=== PATIENT | male | born 1990 | race African-American/Black ===

== ENCOUNTER 2020-04-02 09:13 | Emergency (ER) | payer SELFPAY ==
--- NOTE | 2020-04-02 10:33 | RAD REPORT ---
EXAM DESCRIPTION: RAD - Chest Single View - 04/02/2020 10:16 am CLINICAL HISTORY: COUGH Chest pain. COMPARISON: No comparisons FINDINGS: Portable technique limits examination quality. The lungs are grossly clear. The heart is normal in size. No displaced fractures. IMPRESSION: No acute intrathoracic process suspected.
--- NOTE | 2020-04-02 12:07 | EDPHYS ---
Physician Documentation [facility] Name: Johnnie Richardson III Age: 29 yrs Sex: Male : 1990 Arrival Date: 04/02/2020 Time: 09:16 Bed 16 Private MD: ED Physician Jin Vizcaino HPI: 04/02 09:53 This 29 yrs old Black Male presents to ER via Ambulatory with complaints of R/O COVID. pm1 09:53 The patient or guardian reports cough, with no sputum, Runny nose. Vomit x 2, 2 days pm1 ago. Sore throat. Onset: The symptoms/episode began/occurred 1 week(s) ago. Severity of symptoms: in the emergency department the symptoms have improved. Modifying factors: The symptoms are alleviated by nothing, the symptoms are aggravated by nothing. Associated signs and symptoms: Pertinent negatives: chest pain, diarrhea, fever, Shortness of breath. The patient has not recently seen a physician. No sick contacts. Historical: - Allergies: 09:40 No Known Allergies; aa5 - Home Meds: 09:40 lisinopril 20 mg Oral tab 1 tab once daily [Active]; aa5 - PMHx: 09:40 Hypertension; aa5 - PSHx: 09:40 None; aa5 - Immunization history:: Flu vaccine is not up to date. - Social history:: Smoking status: Patient reports the use of cigarette tobacco products, smokes one-half pack cigarettes per day. ROS: 09:53 Constitutional: Negative for fever, chills, and weight loss, Eyes: Negative for injury, pm1 pain, redness, and discharge. 09:53 Cardiovascular: Negative for chest pain, palpitations, and edema. 09:53 Back: Negative for injury and pain, MS/Extremity: Negative for injury and deformity, Skin: Negative for injury, rash, and discoloration, Neuro: Negative for headache, weakness, numbness, tingling, and seizure. 09:53 ENT: Positive for rhinorrhea, sore throat, Negative for ear pain. 09:53 Respiratory: Positive for cough, with no reported sputum, Negative for shortness of breath, sputum production, wheezing. 09:53 Abdomen/GI: Positive for vomiting, resolved 2 days ago, Negative for abdominal pain, diarrhea, constipation. Exam: 09:53 Constitutional: This is a well developed, well nourished patient who is awake, alert, pm1 and in no acute distress. Head/Face: Normocephalic, atraumatic. Chest/axilla: Normal chest wall appearance and motion. Nontender with no deformity. No lesions are appreciated. 09:53 Abdomen/GI: Soft, non-tender, with normal bowel sounds. No distension or tympany. No guarding or rebound. No evidence of tenderness throughout. Back: No spinal tenderness. No costovertebral tenderness. Full range of motion. Skin: Warm, dry with normal turgor. Normal color with no rashes, no lesions, and no evidence of cellulitis. MS/ Extremity: Pulses equal, no cyanosis. Neurovascular intact. Full, normal range of motion. 09:53 Cardiovascular: Exam negative for acute changes, Rate: normal, Rhythm: regular, Pulses: no pulse deficits are appreciated. 09:53 Respiratory: Exam negative for acute changes, respiratory distress, shortness of breath. 09:53 Neuro: Exam negative for acute changes, Orientation: is normal, Mentation: is normal, Motor: is normal, moves all fours, Gait: is steady, at a normal pace, without difficulty. Vital Signs: 09:32 BP 153 / 94; Pulse 57; Resp 18 S; Temp 98.7(O); Pulse Ox 99% on R/A; Weight 90.72 kg aa5 (R); Height 5 ft. 9 in. (175.26 cm) (R); Pain 0/10; 11:20 BP 173 / 104; Pulse 72; Resp 17; Pulse Ox 100% on R/A; tw2 12:22 BP 165 / 99; Pulse 55; Resp 17; Pulse Ox 100% on R/A; tw2 09:32 Body Mass Index 29.53 (90.72 kg, 175.26 cm) aa5 MDM: 09:32 Patient medically screened. pm1 12:05 Data reviewed: vital signs. Data interpreted: Pulse oximetry: on room air is 100 %. pm1 Interpretation: normal. Counseling: I had a detailed discussion with the patient and/or guardian regarding: the historical points, exam findings, and any diagnostic results supporting the discharge/admit diagnosis, lab results, radiology results, the need for outpatient follow up, to return to the emergency department if symptoms worsen or persist or if there are any questions or concerns that arise at home. 04/02 09:53 Order name: Flu; Complete Time: 12:05 pm1 04/02 09:53 Order name: Strep; Complete Time: 12:05 pm1 04/02 09:53 Order name: CXR XRAY; Complete Time: 10:47 pm1 04/02 09:53 Order name: Labs collected and sent; Complete Time: 10:46 pm1 04/02 12:04 Order name: Throat Culture EDAK Administered Medications: No medications were administered Disposition: 20:23 Co-signature as Attending Physician, Jin Vizcaino MD I agree with the assessment and [facility] plan of care. Disposition: 04/02/20 12:06 Discharged to Home. Impression: Acute upper respiratory infection, unspecified. - Condition is Stable. - Discharge Instructions: Upper Respiratory Infection, Adult. - Prescriptions for Tessalon Perles 100 mg Oral Capsule - take 1 capsule by ORAL route every 8 hours As needed; 15 capsule. - Medication Reconciliation Form, Thank You Letter, Antibiotic Education, Prescription Opioid Use form. - Follow up: Emergency Department; When: As needed; Reason: Worsening of condition. Follow up: Private Physician; When: 2 - 3 days; Reason: Recheck today's complaints, Continuance of care, Re-evaluation by your physician. - Problem is new. - Symptoms have improved. Signatures: Dispatcher [employer] EDAK Jin Vizcaino MD MD cha Calderon, Audri, RN RN aa5 Drew Babcock, GREEN INSPECTOR GREEN INSPECTOR pm1 Zaria Hopson RN RN tw2 Corrections: (The following items were deleted from the chart) 12:23 12:06 04/02/2020 12:06 Discharged to Home. Impression: Acute upper respiratory tw2 infection, unspecified. Condition is Stable. Forms are Medication Reconciliation Form, Thank You Letter, Antibiotic Education, Prescription Opioid Use. Follow up: Emergency Department; When: As needed; Reason: Worsening of condition. Follow up: Private Physician; When: 2 - 3 days; Reason: Recheck today's complaints, Continuance of care, Re-evaluation by your physician. Problem is new. Symptoms have improved. pm1
--- NOTE | 2020-04-02 12:07 | ER ---
Nurse's Notes [facility] Name: Johnnie Richardson III Age: 29 yrs Sex: Male : 1990 Arrival Date: 04/02/2020 Time: 09:16 Bed 16 Private MD: Diagnosis: Acute upper respiratory infection, unspecified Presentation: 04/02 09:32 Chief complaint: Patient states: cough, runny nose x 1 week ago. Pt reports vomiting x aa5 2 days ago, also reports sore throat. Denies diarrhea, denies fever, denies SOB. 09:32 Coronavirus screen: Patient reports a cough. Patient denies shortness of breath or aa5 difficulty breathing. Patient denies measured and/or subjective temperature greater than 100.4F prior to today's visit. Patient denies travel on a cruise ship or to a country the [facility] currently lists as an affected area. Patient denies contact with known and/or suspected case of COVID-19. Ebola Screen: Patient negative for fever greater than or equal to 101.5 degrees Fahrenheit, and additional compatible Ebola Virus Disease symptoms. Initial Sepsis Screen: Does the patient meet any 2 criteria? No. Patient's initial sepsis screen is negative. Does the patient have a suspected source of infection? No. Patient's initial sepsis screen is negative. Risk Assessment: Do you want to hurt yourself or someone else? Patient reports no desire to harm self or others. Onset of symptoms was March 2020. 09:32 Acuity: SHILO 4 aa5 09:32 Method Of Arrival: Ambulatory aa5 Historical: - Allergies: 09:40 No Known Allergies; aa5 - Home Meds: 09:40 lisinopril 20 mg Oral tab 1 tab once daily [Active]; aa5 - PMHx: 09:40 Hypertension; aa5 - PSHx: 09:40 None; aa5 - Immunization history:: Flu vaccine is not up to date. - Social history:: Smoking status: Patient reports the use of cigarette tobacco products, smokes one-half pack cigarettes per day. Screenin:21 Abuse screen: Denies threats or abuse. Nutritional screening: No deficits noted. tw2 Tuberculosis screening: No symptoms or risk factors identified. Fall Risk None identified. Assessment: 09:35 General: Appears in no apparent distress. well groomed, Behavior is calm, cooperative, tw2 appropriate for age. Pain: Complains of pain in uvula, left aspect of posterior pharynx and right aspect of posterior pharynx. Neuro: Level of Consciousness is awake, alert, obeys commands, Oriented to person, place, time, situation. Cardiovascular: Heart tones S1 S2 Patient's skin is warm and dry. Respiratory: Airway is patent Respiratory effort is even, unlabored, Respiratory pattern is regular, symmetrical, Breath sounds are clear bilaterally. GI: No signs and/or symptoms were reported involving the gastrointestinal system. : No signs and/or symptoms were reported regarding the genitourinary system. EENT: Reports nasal congestion nasal discharge. EENT: Reports "i just been using some cough drops that's it", provider notified . Denies fever. Derm: No signs and/or symptoms reported regarding the dermatologic system. Musculoskeletal: Range of motion: intact in all extremities. 11:20 Reassessment: Patient appears in no apparent distress at this time. No changes from tw2 previously documented assessment. Patient and/or family updated on plan of care and expected duration. Pain level reassessed. Patient is alert, oriented x 3, equal unlabored respirations, skin warm/dry/pink. 12:22 Reassessment: Patient appears in no apparent distress at this time. No changes from tw2 previously documented assessment. Patient and/or family updated on plan of care and expected duration. Pain level reassessed. Patient is alert, oriented x 3, equal unlabored respirations, skin warm/dry/pink. Vital Signs: 09:32 BP 153 / 94; Pulse 57; Resp 18 S; Temp 98.7(O); Pulse Ox 99% on R/A; Weight 90.72 kg aa5 (R); Height 5 ft. 9 in. (175.26 cm) (R); Pain 0/10; 11:20 BP 173 / 104; Pulse 72; Resp 17; Pulse Ox 100% on R/A; tw2 12:22 BP 165 / 99; Pulse 55; Resp 17; Pulse Ox 100% on R/A; tw2 09:32 Body Mass Index 29.53 (90.72 kg, 175.26 cm) aa5 ED Course: 09:16 Patient arrived in ED. ag5 09:32 Drew Babcock NP is PHCP. pm1 09:32 Jin Vizcaino MD is Attending Physician. pm1 09:32 Arm band placed on. aa5 09:35 Bed in low position. Call light in reach. quality assurance monitor body on. Pulse ox on. NIBP on. tw2 Verbal reassurance given. 09:40 Triage completed. aa5 09:58 Zaria Hopson, RN is Primary Nurse. tw2 10:14 CXR XRAY In Process Unspecified. EDMS 11:35 Flu Sent. tw2 11:36 Strep Sent. tw2 11:42 No provider procedures requiring assistance completed. tw2 12:22 Patient did not have IV access during this emergency room visit. tw2 Administered Medications: No medications were administered Outcome: 12:06 Discharge ordered by MD. pm1 12:22 Discharged to home ambulatory. tw2 12:22 Condition: stable 12:22 Discharge instructions given to patient, Instructed on discharge instructions, follow up and referral plans. medication usage, Demonstrated understanding of instructions, follow-up care, medications, Prescriptions given X 1. 12:23 Patient left the ED. tw2 Signatures: Dispatcher [employer] EDME Yessi Whipple, RN RN aa5 Drew Babcock, ANIMAL RIDES MANAGER ANIMAL RIDES MANAGER pm1 Zaria Hopson, RN RN tw2 Adriana Balderas 5
[2020-04-02 12:29] VITALS: TEMP 98.7
[2020-04-02 12:30] VITALS: O2SAT 100
[2020-04-02 12:31] VITALS: BP 165/99
== END 2020-04-02 12:23 | disposition home or self-care (01) ==
LOC: ER 09:13
DX: J06.9 Acute upper respiratory infection, unspecified (principal); I10 Essential (primary) hypertension; F17.210 Nicotine dependence, cigarettes, uncomplicated
CPT/HCPCS: 71045; 87070; 87081; 87804; 99284

== ENCOUNTER 2021-01-30 10:13 | Emergency (ER) | payer SELFPAY ==
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
--- NOTE | 2021-01-30 14:09 | EDPHYS ---
Physician Documentation [facility] Name: Johnnie Richardson III Age: 30 yrs Sex: Male : 1990 Arrival Date: 01/30/2021 Time: 10:16 Bed 5 Private MD: ED Physician Historical: - Allergies: 01/30 10:20 No Known Allergies; iw - Home Meds: 10:20 None [Active]; iw - PMHx: 10:20 Hypertension; iw - PSHx: 10:20 None; iw - Immunization history:: Flu vaccine is not up to date. - Social history:: Smoking status: Patient reports the use of cigarette tobacco products, smokes one pack cigarettes per day. Vital Signs: 10:19 BP 153 / 84; Pulse 63; Resp 16; Temp 97.8; Pulse Ox 99% on R/A; Weight 92.99 kg; Height iw 5 ft. 10 in. (177.80 cm); 10:19 Body Mass Index 29.42 (92.99 kg, 177.80 cm) iw MDM: 14:09 Medical screening is not applicable. kb Administered Medications: No medications were administered Disposition: 01/30/21 14:04 Patient left the facility post triage evaluation and consult. - Patient left due to wait time. Signatures: Madelyn Bocanegra, REILLY-C NEW ACCOUNTS BANKING REPRESENTATIVE-Ct Slater, RN RN iw Yessi Whipple RN RN aa5 Corrections: (The following items were deleted from the chart) 14:09 14:04 01/30/2021 14:04 Patient left the facility post triage evaluation and consult. kb Reason stated they are leaving due to wait time. aa5
[2021-01-30 22:17] VITALS: BP 153/84; TEMP 97.8; O2SAT 99
== END 2021-01-30 14:09 | disposition left against medical advice (07) ==
LOC: ER 10:13
DX: R69 Illness, unspecified (principal); F17.210 Nicotine dependence, cigarettes, uncomplicated; I10 Essential (primary) hypertension; Z53.21 Procedure and treatment not carried out due to patient leaving prior to being seen by health care provider
CPT/HCPCS: 99281

== ENCOUNTER 2022-07-21 14:51 | Emergency (ER) | payer SELFPAY ==
--- NOTE | 2022-07-21 15:35 | EDPHYS ---
Physician Documentation [facility] Name: Johnnie Richardson III Age: 32 yrs Sex: Male : 1990 Arrival Date: 07/21/2022 Time: 14:52 Bed Treatment Private MD: ED Physician Misael Sood HPI: 07/21 15:05 This 32 yrs old Black Male presents to ER via Ambulatory with complaints of Wound Check cp - packing. 15:05 Patient presents to ED for recheck of: laceration. The affected area is on the left cp upper chest. Previous treatment: the care was rendered at [facility] in [place], [place], Treatment type: The patient's original treatment included packing. 15:05 No other complaints expressed. Denies shortness of breath. cp Historical: - Allergies: 14:57 No Known Allergies; aa5 - PMHx: 14:55 Hypertension; aa5 - Immunization history:: Adult Immunizations up to date, Client reports having NOT received the Covid vaccine. Last tetanus immunization: up to date. - Social history:: Smoking status: Patient denies any tobacco usage or history of. ROS: 15:10 Skin: Positive for of the anterior aspect of left upper chest, open wound. cp 15:10 All other systems are negative. 15:10 Constitutional: Negative for body aches, chills, fever, poor PO intake. cp 15:10 Neck: Negative for pain with movement, pain at rest, stiffness. 15:10 Respiratory: Negative for cough, shortness of breath, wheezing. 15:10 Abdomen/GI: Negative for abdominal pain, nausea, vomiting, and diarrhea. 15:10 Back: Negative for pain at rest, pain with movement. 15:10 Neuro: Negative for headache, weakness. Exam: 15:15 Constitutional: The patient appears in no acute distress, alert, awake, comfortable, cp non-diaphoretic, non-toxic, well developed, well nourished. 15:15 Head/Face: Normocephalic, atraumatic. cp 15:15 Eyes: Periorbital structures: appear normal, Conjunctiva: normal, no exudate, no cp injection, Lids and lashes: appear normal, bilaterally. 15:15 ENT: External ear(s): are unremarkable, Nose: is normal, Mouth: Lips: moist, Oral mucosa: pink and intact, moist. 15:15 Chest/axilla: Inspection: 3 cm open wound noted anterior left upper chest wall with no erythema, no drainage and no swelling, Palpation: crepitus, is not appreciated, tenderness, that is mild, of the anterior aspect of left upper chest. 15:15 Cardiovascular: Rate: normal, Rhythm: regular. 15:15 Respiratory: the patient does not display signs of respiratory distress, Respirations: normal, no use of accessory muscles, no retractions, labored breathing, is not present, Breath sounds: are clear throughout, no decreased breath sounds, no stridor, no wheezing. 15:15 Abdomen/GI: Inspection: abdomen appears normal, Palpation: abdomen is soft and non-tender, in all quadrants. 15:15 Neuro: Orientation: to person, place \T\ time. Mentation: is normal. Vital Signs: 14:57 BP 178 / 116; Pulse 63; Resp 16 S; Temp 98.0(TE); Pulse Ox 100% on R/A; Weight 95.25 kg aa5 (R); Height 5 ft. 9 in. (175.26 cm) (R); 15:45 BP 165 / 105; Pulse 62; Resp 18; Pulse Ox 100% ; kb3 14:57 Body Mass Index 31.01 (95.25 kg, 175.26 cm) aa5 MDM: 15:03 Patient medically screened. cp 15:35 Data reviewed: vital signs, nurses notes. cp 15:35 Differential diagnosis: cellulitis, abscess, pneumothorax. Counseling: I had a detailed cp discussion with the patient and/or guardian regarding: the historical points, exam findings, and any diagnostic results supporting the discharge/admit diagnosis, to return to the emergency department if symptoms worsen or persist or if there are any questions or concerns that arise at home. Special discussion: wound care and how to repack wound. 07/21 15:13 Order name: Blood Pressure Recheck; Complete Time: 16:00 cp 07/21 15:13 Order name: Dressing - Wound; Complete Time: 16:00 cp Administered Medications: No medications were administered Disposition Summary: 07/21/22 15:35 Discharge Ordered Location: Home cp Problem: new cp Symptoms: have improved cp Condition: Stable cp Diagnosis - Encounter for change or removal of nonsurgical wound dressing cp - Hypertensive heart disease without heart failure cp Followup: cp - With: Private Physician - When: 1 - 2 days - Reason: Recheck today's complaints Discharge Instructions: - Discharge Summary Sheet cp - How to Change Your Wound Dressing cp - Hypertension, Adult cp - Form - Blood Pressure Record Sheet cp - How to Take Your Blood Pressure cp Forms: - Medication Reconciliation Form cp - Thank You Letter cp - Antibiotic Education cp - Prescription Opioid Use cp Addendum: 07/23/2022 23:58 Co-signature as Attending Physician, Misael Sood MD I was immediately available on-site r n in the Emergency Department for consultation in the care of the patient.. Signatures: Misael Sood MD MD rn Calderon, Audri RN RN aa5 Jin Loza PA PA cp Bradberry, Kelly RN RN kb3 Corrections: (The following items were deleted from the chart) 07/22 14:06 14:04 All other systems are negative, cp cp 14:06 14:04 Skin: Positive for of the anterior aspect of left upper chest, open wound, cp cp
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
[2022-07-21 16:22] VITALS: BP 178/116; TEMP 98; O2SAT 100
== END 2022-07-21 16:00 | disposition home or self-care (01) ==
LOC: ER 14:51
DX: Z48.00 Encounter for change or removal of nonsurgical wound dressing (principal); I11.9 Hypertensive heart disease without heart failure; I10 Essential (primary) hypertension
CPT/HCPCS: 99281

== ENCOUNTER 2024-09-08 22:42 | Emergency (ER) | payer SELFPAY ==
[2024-09-08] MEDS ORDERED: hydroCHLOROthiazide 25 MG TAB ONE (23:11)
[2024-09-08] MEDS ORDERED: LOSARTAN POTASSIUM 50 MG TABLET ONE (23:19)
[2024-09-08] MEDS ORDERED: ONDANSETRON 4 MG/2 ML VIAL ONE (23:30)
[2024-09-08] MEDS ORDERED: MORPHINE 4 MG/ML SYR ONE (23:30)
[2024-09-08 23:33] LABS: Absolute Basophils 0.1 K/uL (0-0.5); Absolute Eosinophils 0.6 K/uL (0-0.5); Absolute Lymphocytes (CBC) 2.6 K/uL (0.7-4.9); Absolute Monocytes 0.6 K/uL (0.1-1.3); Absolute Neutrophil 2.6 K/uL (1.8-8.0); Basophils % 1.2 % (0-1.3); Eosinophils % 9.3 % (0-4.4); Hematocrit 44.3 % (39.6-49.0); Hemoglobin 14.8 g/dL (13.6-17.9); Lymphocytes % 40.4 % (15.3-44.8); MCH 31.4 pg (27.0-35.0); MCHC 33.4 g/dL (32.0-36.0); MCV 94.1 fL (80-100); MPV 7.8 fL (7.6-11.3); Monocytes % 9.1 % (3.3-12.3); Nucleated Red Blood Cells % 0.1 % (0-0); Platelets 267 thou/uL (152-406); Red Cell Distribution Width 13.9 % (12.1-15.2)
[2024-09-08] MEDS ORDERED: HEPARIN 5000 UNIT/ML 1 ML VIAL ONE (23:34)
[2024-09-08] MEDS ORDERED: ASPIRIN 81 MG CHEWABLE TABLET ONE (23:34)
[2024-09-08] MEDS ORDERED: HEPARIN/D5W 25,000 UNIT/500 ML BAG IV ONE (23:35)
[2024-09-08 23:38] LABS: PT Prothrombin Time 10.8 SECONDS (9.4-12.5); Protime INR 0.96
[2024-09-08] MEDS ORDERED: FENTANYL CITR 100 MCG/2 ML ONE (23:39)
[2024-09-08] MEDS ORDERED: LORazepam 2 MG/ML VIAL ONE (23:39)
--- NOTE | 2024-09-08 23:45 | ER ---
Nurse's Notes [facility] Name: Johnnie Richardson III Age: 34 yrs Sex: Male : 1990 Arrival Date: 09/08/2024 Time: 22:42 Bed IW9 Private MD: Diagnosis: Acute ST elevated CA, Uncontrolled hypertension Presentation: 09/08 22:58 Chief complaint: Patient states: chest pain that started prior to arrival. States head cp4 pain as well. Coronavirus screen: Client denies travel out of the [place] in the last 14 days. At this time, the client does not indicate any symptoms associated with coronavirus-19. Ebola Screen: Patient negative for fever greater than or equal to 101.5 degrees Fahrenheit, and additional compatible Ebola Virus Disease symptoms Patient denies exposure to infectious person. Patient denies travel to an Ebola-affected area in the 21 days before illness onset. No symptoms or risks identified at this time. Initial Sepsis Screen: Does the patient meet any 2 criteria? No. Patient's initial sepsis screen is negative. Does the patient have a suspected source of infection? No. Patient's initial sepsis screen is negative. Risk Assessment: Do you want to hurt yourself or someone else? Patient reports no desire to harm self or others. Onset of symptoms was September 08, 2024. 22:58 Method Of Arrival: EMS: [facility] 4 22:58 Acuity: SHILO 3 cp4 Triage Assessment: 23:09 General: Appears in no apparent distress. comfortable, Behavior is calm, cooperative, cp4 appropriate for age. Pain: Complains of pain in chest and left arm Pain radiates to left arm Pain currently is 5 out of 10 on a pain scale. Pain began 30 min ago. EENT: No signs and/or symptoms were reported regarding the EENT system. Neuro: Level of Consciousness is awake, alert, obeys commands, Oriented to person, place, time, situation. Cardiovascular: Reports chest pain, Patient's skin is warm and dry. Rhythm is sinus bradycardia. Respiratory: Airway is patent Respiratory effort is even, unlabored. GI: No signs and/or symptoms were reported involving the gastrointestinal system. : No signs and/or symptoms were reported regarding the genitourinary system. Derm: No signs and/or symptoms reported regarding the dermatologic system. Musculoskeletal: No signs and/or symptoms reported regarding the musculoskeletal system. Historical: - Allergies: 23:36 Morphine; cp4 23:36 PENICILLINS; cp4 - Home Meds: 23:09 lisinopril 20 mg Oral tab 1 tab once daily [Active]; cp4 - PMHx: 23:09 Hypertension; cp4 - Immunization history:: Adult Immunizations up to date. - Infectious Disease History:: Denies. - Social history:: Smoking status: Patient denies any tobacco usage or history of. - Family history:: not pertinent. Screenin:15 [facility] ED Fall Risk Assessment (Adult) History of falling in the last 3 months, cp4 including since admission No falls in past 3 months (0 pts) Confusion or Disorientation No (0 pts) Intoxicated or Sedated No (0 pts) Impaired Gait No (0 pts) Mobility Assist Device Used No (0 pt) Altered Elimination No (0 pt) Score/Fall Risk Level 0 - 2 = Low Risk Oriented to surroundings, Maintained a safe environment, Assessed \T\ reinforced patient's understanding of fall precautions, Hourly rounding (assess needs \T\ fall precautionary measures) done. Abuse screen: Denies threats or abuse. Nutritional screening: No deficits noted. Tuberculosis screening: No symptoms or risk factors identified. Assessment: 23:14 Reassessment: No changes from previously documented assessment. Pain: Complains of pain cp4 in left arm and chest Pain radiates to left arm Pain currently is 5 out of 10 on a pain scale. Neuro: Reports headache. Vital Signs: 22:58 BP 175 / 107; Pulse 55; Resp 18; Temp 98.1; Pulse Ox 99% ; Pain 5/10; cp4 23:30 BP 196 / 116; Pulse 59; Resp 18; Pulse Ox 100% ; cp4 23:35 Weight 99.34 kg; cp4 10 00:00 BP 207 / 117; Pulse 57; Resp 18; Pulse Ox 100% ; cp4 10 22:58 Pain Scale: Adult cp4 Govind Coma Score: 09/08 23:37 Eye Response: spontaneous(4). Motor Response: obeys commands(6). Verbal Response: sp4 oriented(5). Total: 15. ED Course: 22:53 Patient arrived in ED. rv1 22:54 Tavo Bardales MD is Attending Physician. sp4 23:09 Triage completed. cp4 23:09 Arm band placed on right wrist. Patient placed in an exam room, on a stretcher. cp4 23:15 Bed in low position. Call light in reach. Side rails up X 1. Provided Education on: cp4 chest pain. Client placed on continuous cardiac and pulse oximetry monitoring. NIBP monitoring applied. motor vehicles supervisor on. Pulse ox on. NIBP on. 23:15 No provider procedures requiring assistance completed. Patient maintains SpO2 cp4 saturation greater than 95% on room air. 23:20 Inserted saline lock: 20 gauge in right antecubital area, using aseptic technique. sa1 Blood collected. Flushed with 10 mL NS. 23:23 Bertha Nicholas, DAVID is Primary Nurse. br2 23:33 Missed attempt(s): 20 gauge in left antecubital area. Bleeding controlled, band aid sa1 applied, catheter tip intact. 23:46 Inserted saline lock: 22 gauge in right antecubital area, using aseptic technique. vk Blood collected. Flushed with 10 mL NS. 23:59 Chest Single View XRAY In Process Unspecified. EDMS 09/09 00:21 Patient transferred, IV remains in place. cp4 Administered Medications: 09/08 23:28 Drug: Hydrochlorothiazide PO 25 mg PO once Route: PO; cp4 23:28 Drug: Losartan PO 100 mg PO once Route: PO; cp4 09/09 00:04 Follow up: Response: No adverse reaction cp4 09/08 23:35 Not Given (Patient Refused): morphineor iv 4 mg IVP once over 4 mins cp4 23:35 Drug: Ondansetron IVP 4 mg IVP once; over 2 minutes Route: IVP; Site: right antecubital;cp4 23:52 Follow up: Response: No adverse reaction cp4 23:50 Drug: Aspirin PO Chewable Tablet 324 mg PO once; 81 mg tablets x 4 Route: PO; cp4 09/09 00:03 Follow up: Response: No adverse reaction cp4 09/08 23:51 Drug: Heparin ([place]-Bolus No thrombolytic) - HEParin IVP 60 units/kg IVP once; Max 5000 cp4 units {Co-Signature: br2 (Bertha Nicholas RN).} Route: IVP; Site: right antecubital; 09/09 00:03 Follow up: Response: No adverse reaction cp4 09/08 23:51 Drug: Heparin ([place] Drip) 12 units/kg/[place] - ([place] [address] units, D5W IV 500 ml) IV at cp4 calculated rate Per protocol; Max initial rate 1000 units/hr {Co-Signature: br2 (Bertha Nicholas RN).} Route: IV; Rate: calculated rate; Site: right antecubital; 09/09 00:04 Follow up: Response: No adverse reaction; IV Status: Infusion continued upon transfer cp4 09/08 23:51 Drug: Ativan IVP 1 mg IVP once Route: IVP; Site: right antecubital; cp4 09/09 00:03 Follow up: Response: No adverse reaction cp4 09/08 23:51 Drug: fentaNYL (PF) IVP 50 mcg IVP once Route: IVP; Site: right antecubital; cp4 09/09 00:03 Follow up: Response: No adverse reaction cp4 00:02 Drug: Nitroglycerin Transdermal Ointment 2 % 1 inches Transdermal once Route: cp4 Transdermal; Site: anterior chest wall; Medication: 09/08 23:15 VIS not applicable for this client. cp4 Outcome: 23:44 ER care complete, transfer ordered by . sp4 09/09 00:21 Transferred by helicopter to [facility], Transfer form completed. cp4 X-rays sent w/ patient. Condition: stable Instructed on the need for transfer, 00:22 Patient left the ED. cp4 Signatures: Dispatcher [employer] Fadia Villegas rvTavo Amanda MD MD sp4 Oma Rose cp4 Marleny Tyler Sultan sa1 Bertha Nicholas RN RN br2 Bertha Nicholas RN br2
--- NOTE | 2024-09-08 23:45 | EDPHYS ---
Physician Documentation [facility] Name: Johnnie Richardson III Age: 34 yrs Sex: Male : 1990 Arrival Date: 09/08/2024 Time: 22:42 Bed IW9 Private MD: ED Physician Tavo Bardales HPI: 09/08 22:54 This 34 yrs old Black Male presents to ER via Unassigned with complaints of Chest Pain. sp4 23:31 35-year-old male presents with acute onset midsternal chest pain starting about an hour sp4 prior to arrival. Patient states he has been out of his blood pressure medicines for the past 4 days. Patient takes amlodipine, lisinopril and HCTZ for blood pressure. EMS was called and patient arrived here with chest pain. NO History of prior diagnosed coronary artery disease. History of hypertension only. . Historical: - Allergies: 23:36 Morphine; cp4 23:36 PENICILLINS; cp4 - Home Meds: 23:09 lisinopril 20 mg Oral tab 1 tab once daily [Active]; cp4 - PMHx: 23:09 Hypertension; cp4 - Immunization history:: Adult Immunizations up to date. - Infectious Disease History:: Denies. - Social history:: Smoking status: Patient denies any tobacco usage or history of. - Family history:: not pertinent. ROS: 23:31 Constitutional: Negative for fever, chills, and weight loss, positive presented for sp4 chest pain positive for elevated blood pressure 23:37 All other systems are negative, sp4 Exam: 23:37 Constitutional: This is a well developed, well nourished patient who is awake, alert, sp4 and in no acute distress. Head/Face: Normocephalic, atraumatic. Eyes: Pupils equal round and reactive to light, extra-ocular motions intact. Lids and lashes normal. Conjunctiva and sclera are not injected. Cornea within normal limits. Periorbital areas with no swelling, redness, or edema. ENT: Nares patent. No nasal discharge, no septal abnormalities noted. Tympanic membranes are normal and external auditory canals are clear. Oropharynx with no redness, swelling, or masses, exudates, or evidence of obstruction, uvula midline. Mucous membranes moist. Neck: Trachea midline, no thyromegaly or masses palpated, and no cervical lymphadenopathy. Supple, full range of motion without nuchal rigidity, or vertebral point tenderness. Chest/axilla: Normal chest wall appearance and motion. Nontender with no deformity. No lesions are appreciated. Cardiovascular: Regular rate and rhythm with a normal S1 and S2. No gallops, murmurs, or rubs. Normal PMI, no JVD. No pulse deficits. Respiratory: Lungs have equal breath sounds bilaterally, clear to auscultation and percussion. No rales, rhonchi or wheezes noted. No increased work of breathing, no retractions or nasal flaring. Abdomen/GI: Soft, with normal bowel sounds. No distension or tympany. No guarding or rebound. No evidence of tenderness throughout. Back: No spinal tenderness. No costovertebral tenderness. Skin: Warm, dry with normal turgor. Normal color with no rashes, no lesions, and no evidence of cellulitis. MS/ Extremity: Pulses equal, no cyanosis. Neurovascular intact. Full, normal range of motion. Neuro: Awake and alert, GCS 15, oriented to person, place, time, and situation. Cranial nerves II-XII grossly intact. Motor strength 5/5 in all extremities. Sensory grossly intact. Psych: Awake, alert, with orientation to person, place and time. Behavior, mood, and affect are within normal limits 23:37 ECG was reviewed by the Attending Physician. EKG at [address] depressions lead to 3 and aVF. Normal sinus bradycardia rate 54, ST elevation 2 mm V2 , ST depression in lead V6. Vital Signs: 22:58 BP 175 / 107; Pulse 55; Resp 18; Temp 98.1; Pulse Ox 99% ; Pain 5/10; cp4 23:30 BP 196 / 116; Pulse 59; Resp 18; Pulse Ox 100% ; cp4 23:35 Weight 99.34 kg; cp4 09/09 00:00 BP 207 / 117; Pulse 57; Resp 18; Pulse Ox 100% ; cp4 09/08 22:58 Pain Scale: Adult cp4 Govind Coma Score: 09/08 23:37 Eye Response: spontaneous(4). Motor Response: obeys commands(6). Verbal Response: sp4 oriented(5). Total: 15. MDM: 22:55 Medical Screening Exam initiated sp4 23:44 Differential diagnosis: acute myocardial infarction, acute pericarditis, anxiety, sp4 coronary artery disease chest wall pain, congestive heart failure. HEART Score: History: Moderately Suspicious (1), ECG: Significant ST-deviation (2), Age: < or = 45 years (0), Risk Factors: 1 or 2 risk factors (1), Troponin: < or = 1 x Normal Limit (0), Total Score = 4. 23:48 Data reviewed: vital signs, nurses notes, EMS record, old medical records, lab test sp4 result(s), EKG, radiologic studies, plain films. Consideration of Admission/Observation Escalation of care including admission/observation considered. ED course: Patient presents with acute midsternal chest pain associated with elevated blood pressure. States he has not been on his blood pressure meds for the past 4 days. Patient has had EKG that has revealed significant ST depressions in leads II, III and aVF and ST elevation in V2. Fagot Maker has advised emergent transfer for heart cath to [facility]. [facility] special tax auditor has agreed that patient requires emergent heart cath and requested transfer to [facility].. Requested that the patient was started on IV heparin and p.o. aspirin. We have initiated IV heparin until aspirin. Patient was also given his p.o. blood pressure meds losartan and HCTZ. Additionally he was provided fentanyl for pain and lorazepam for anxiety. Patient is allergic to morphine.. 23:55 ED course: Report was given to [facility] special tax auditor and also report was given sp4 to [facility] ED physician about patient. Patient was updated on his transfer and his condition. . 09/08 22:54 Order name: Basic Metabolic Panel; Complete Time: 23:54 sp4 09/08 22:54 Order name: CBC with Diff; Complete Time: 23:54 sp4 09/08 22:54 Order name: LFT's; Complete Time: 23:54 sp4 09/08 22:54 Order name: NT PRO-BNP; Complete Time: 23:54 sp4 09/08 22:54 Order name: PT-INR; Complete Time: 23:54 sp4 09/08 22:54 Order name: Troponin HS; Complete Time: 23:54 sp4 09/08 23:46 Order name: Urine Drug Screen sp4 09/08 23:48 Order name: Chest Single View XRAY sp4 09/08 22:54 Order name: Cardiac monitoring; Complete Time: 23:16 sp4 09/08 22:54 Order name: EKG - Nurse/Tech; Complete Time: 23:16 sp4 09/08 22:54 Order name: IV Saline Lock; Complete Time: 23:16 sp4 09/08 22:54 Order name: Labs collected and sent; Complete Time: 23:16 sp4 09/08 22:54 Order name: O2 Per Protocol; Complete Time: 23:16 sp4 09/08 22:54 Order name: O2 Sat Monitoring; Complete Time: 23:16 sp4 EC:37 Rate is 52 beats/min. Rhythm is regular, Sinus bradycardia. QRS [place] is Normal. AR sp4 interval is normal. QRS interval is normal. QT interval is normal. No Q waves. ST Segment is elevated in lead V2. ST Segment is depressed in leads II, III, aVF, V6, 1-2mm. Clinical impression: Acute WI. Reviewed by me. Administered Medications: 23:28 Drug: Hydrochlorothiazide PO 25 mg PO once Route: PO; cp4 23:28 Drug: Losartan PO 100 mg PO once Route: PO; cp4 09/09 00:04 Follow up: Response: No adverse reaction cp4 09/08 23:35 Not Given (Patient Refused): morphineor iv 4 mg IVP once over 4 mins cp4 23:35 Drug: Ondansetron IVP 4 mg IVP once; over 2 minutes Route: IVP; Site: right antecubital;cp4 23:52 Follow up: Response: No adverse reaction cp4 23:50 Drug: Aspirin PO Chewable Tablet 324 mg PO once; 81 mg tablets x 4 Route: PO; cp4 09/09 00:03 Follow up: Response: No adverse reaction cp4 09/08 23:51 Drug: Heparin ([place]-Bolus No thrombolytic) - HEParin IVP 60 units/kg IVP once; Max 5000 cp4 units {Co-Signature: br2 (Bertha Nicholas RN).} Route: IVP; Site: right antecubital; 09/09 00:03 Follow up: Response: No adverse reaction cp4 09/08 23:51 Drug: Heparin ([place] Drip) 12 units/kg/[place] - ([place] [address] units, D5W IV 500 ml) IV at cp4 calculated rate Per protocol; Max initial rate 1000 units/hr {Co-Signature: br2 (Bertha Nicholas RN).} Route: IV; Rate: calculated rate; Site: right antecubital; 09/09 00:04 Follow up: Response: No adverse reaction; IV Status: Infusion continued upon transfer cp4 09/08 23:51 Drug: Ativan IVP 1 mg IVP once Route: IVP; Site: right antecubital; cp4 09/09 00:03 Follow up: Response: No adverse reaction cp4 09/08 23:51 Drug: fentaNYL (PF) IVP 50 mcg IVP once Route: IVP; Site: right antecubital; cp4 09/09 00:03 Follow up: Response: No adverse reaction cp4 00:02 Drug: Nitroglycerin Transdermal Ointment 2 % 1 inches Transdermal once Route: cp4 Transdermal; Site: anterior chest wall; Disposition: 09/08 23:41 Critical Care:. sp4 Disposition Summary: 09/08/24 23:44 Transfer Ordered Notes: Transfer Location: [facility] sp4 Reason: Higher level of care sp4 Condition: Stable sp4 Problem: new sp4 Symptoms: are unchanged sp4 Accepting Physician: [facility] Lau'sammy attending MD with cardiology(09/09/24 00:21) cp4 Diagnosis - Acute ST elevated [place], Uncontrolled hypertension sp4 Forms: - Medication Reconciliation Form sp4 - SBAR form sp4 Critical care time excluding procedures: 23:41 Critical care time: Bedside Care: 36 minutes, Consultation: 12 minutes, Family sp4 Intervention: 12 minutes. Total time: 60 minutes Signatures: Dispatcher [employer] Tavo Cespedes MD MD sp4 Oma Rose cp4 Bertha Nicholas RN br2 Corrections: (The following items were deleted from the chart) 09/09 00:21 09/08 23:44 [facility] sp4 cp4
[2024-09-08 23:48] LABS: Albumin 3.7 g/dL (3.4-5.0); Anion Gap 6.6 mEq/L (5.0-15.0); Bilirubin Direct 0.2 mg/dL (0-0.2); Bilirubin Indirect, Calculated 0.4 mg/dL (0.2-0.8); Bilirubin Total 0.6 mg/dL (0.2-1.0); Globulin 3.6 g/dL (2.3-3.5); Potassium 4.6 mEq/L (3.5-5.1); Protein, Total 7.3 g/dL (6.4-8.2); Troponin High Sensitivity 8.7 pg/mL (<58.9)
[2024-09-08] MEDS ORDERED: NITROGLYCERIN 1 GM PKT TD ONE (23:54)
[2024-09-09] MEDS ORDERED: HYDRALAZINE HCL 20 MG/ML VIAL ONE (00:02)
[2024-09-09 00:35] LABS: Barbiturates NEGATIVE (NEGATIVE); Benzodiazepines NEGATIVE (NEGATIVE); Cocaine POSITIVE (NEGATIVE); METHAMPHETAM NEGATIVE (NEGATIVE); Methadone NEGATIVE (NEGATIVE); Opiates NEGATIVE (NEGATIVE); Phencyclidine POSITIVE (NEGATIVE); THC Cannibis NEGATIVE (NEGATIVE)
[2024-09-09 02:24] VITALS: TEMP 98.1
[2024-09-09 02:34] VITALS: O2SAT 100
[2024-09-09 02:35] VITALS: BP 207/117
--- NOTE | 2024-09-09 05:39 | RAD REPORT ---
EXAM: XR Chest, 1 View CLINICAL HISTORY: Chest pain. TECHNIQUE: Frontal view of the chest. COMPARISON: No relevant prior studies available. FINDINGS: Lungs: Unremarkable. No consolidation. Pleural space: Unremarkable. No pneumothorax. Heart: Unremarkable. No cardiomegaly. Mediastinum: Unremarkable. Normal mediastinal contour. Bones/joints: Unremarkable. No acute fracture. IMPRESSION: No acute disease. Electronically signed by: Aster Wiley MD 09/09/2024 12:29 AM CDT RP Due to temporary technical issues with the PACS/[employer] reporting system, reports are being des d by the in-house radiologist without review as a courtesy to ensure prompt reporting the interpreting radiologist is fully responsible for the content of the report. Transcribed Date/Time: 09/09/2024 5:39 AM
--- NOTE | 2024-09-13 13:07 | EKG ---
Test Date: 2024-09-08 Test Time: 23:09:24 [employer] Operator: MEASUREMENT RESULTS: Intervals: Rate: 54 CT: 132 QRSD: 102 QT: 432 QTc: 409 [place]: P: 71 CT: 132 QRS: 41 T: -44 INTERPRETIVE STATEMENTS: Sinus bradycardia ST elevation, consider lateral injury or acute infarct ACUTE NE / STEMI Abnormal ECG No previous ECG available for comparison Electronically Signed On 09-13-24 12:55:32 CDT by Yannick Restrepo
== END 2024-09-09 00:22 | disposition short-term general hospital (02) ==
LOC: ER 22:42
DX: I21.3 ST elevation (STEMI) myocardial infarction of unspecified site (principal); I10 Essential (primary) hypertension
CPT/HCPCS: 36415; 71045; 80048; 80076; 80307; 83880; 84484; 85025; 85610; 93005; 96374; 96375; 99285; J0360; J1644; J2405; J3010

== ENCOUNTER 2024-09-18 19:26 | Emergency (ER) | payer SELFPAY ==
[2024-09-18] MEDS ORDERED: ONDANSETRON 4 MG/2 ML VIAL ONE (19:37)
[2024-09-18] MEDS ORDERED: MORPHINE 4 MG/ML SYR ONE (19:37)
[2024-09-18] MEDS ORDERED: FAMOTIDINE 20 MG/2 ML VIAL IV ONE (19:38)
[2024-09-18 19:51] LABS: Absolute Basophils 0.1 K/uL (0-0.5); Absolute Eosinophils 0.3 K/uL (0-0.5); Absolute Lymphocytes (CBC) 2.3 K/uL (0.7-4.9); Absolute Neutrophil 2.4 K/uL (1.8-8.0); Basophils % 1.2 % (0-1.3); Eosinophils % 5.6 % (0-4.4); Hematocrit 46.2 % (39.6-49.0); Hemoglobin 15.6 g/dL (13.6-17.9); Lymphocytes % 38.5 % (15.3-44.8); MCH 31.6 pg (27.0-35.0); MCHC 33.7 g/dL (32.0-36.0); MCV 93.7 fL (80-100); Monocytes % 15.9 % (3.3-12.3); Neutrophils % 38.8 % (41.7-73.7); Nucleated Red Blood Cells % 0.1 % (0-0); Platelets 267 thou/uL (152-406); RBC Red Blood Cell Count 4.93 M/uL (4.33-5.43); Red Cell Distribution Width 13.4 % (12.1-15.2)
--- NOTE | 2024-09-18 19:51 | RAD REPORT ---
EXAMINATION: ONE VIEW CHEST XR CLINICAL INDICATION: CHEST PAIN TECHNIQUE: Frontal chest projection is submitted. Examination is limited by patient positioning and t echnique. COMPARISON: 09/08/2024 FINDINGS: Mild interstitial prominence is nonspecific. This can be seen in mild interstitial edema or viral inf ection/bronchitis. No focal consolidation to indicate pneumonia. The heart is normal in size. No displaced fractures identified.
[2024-09-18 19:52] LABS: PT Prothrombin Time 10.4 SECONDS (9.4-12.5); Protime INR 0.93
[2024-09-18 20:05] LABS: ALT/SGPT 28 U/L (16-61); Albumin 3.6 g/dL (3.4-5.0); Albumin/Globulin Ratio 0.9 (1.1-1.8); Alkaline Phosphatase 89 U/L (45-117); Anion Gap 6.2 mEq/L (5.0-15.0); Bilirubin Total 0.4 mg/dL (0.2-1.0); Lipase 21 U/L (13-75); Protein, Total 7.6 g/dL (6.4-8.2); Troponin High Sensitivity 7.7 pg/mL (<58.9)
[2024-09-18 20:06] LABS: AST/SGOT 21 U/L (15-37); Bilirubin Direct < 0.2 mg/dL (0-0.2); Bilirubin Indirect, Calculated 0.2 mg/dL (0.2-0.8); Potassium 4.2 mEq/L (3.5-5.1)
--- NOTE | 2024-09-18 20:29 | RAD REPORT ---
EXAM: CTA of the chest, abdomen and pelvis HISTORY: Chest pain and back pain chest/abd pain, HTN COMPARISON: None TECHNIQUE: Multiple contiguous axial images were obtained a CTA of the chest and abdomen with contras t per aortic dissection protocol. This involves 3D reconstructions, MIPs, volume rendered images and/or shaded surface rendering. One or more of the following dose reduction techniques were used: Au tomated exposure control, adjustment of the mA and/or kV according to patient size, and/or iterative reconstruction. Unless otherwise specified, incidental findings do not require dedicated im aging follow-up. Sagittal and coronal 3-D MIP reformats were performed. FINDINGS: PULMONARY ARTERIES: Normal in caliber without filling defects to suggest pulmonary emboli. ASCENDING THORACIC AORTA: Normal caliber without evidence of dissection or aneurysmal dilatation. DESCENDING THORACIC AORTA: Normal caliber without evidence of dissection or aneurysmal dilatation. ABDOMINAL AORTA: Normal caliber without evidence of dissection or aneurysmal dilatation. CELIAC TRUNK: Patent. SMA: Patent MAJO: Patent RENAL ARTERIES: Bilateral single renal arteries without significant atherosclerotic disease. MEDIASTINUM: No hilar or mediastinal lymphadenopathy. LUNGS: No focal infiltrates or masses. PLEURAL SPACE: No pleural effusion or pneumothorax. LIVER: Unremarkable. SPLEEN: Unremarkable. PANCREAS: Unremarkable. KIDNEYS: Unremarkable. ADRENALS: Unremarkable. BOWEL: Unremarkable. RETROPERITONEUM: No lymphadenopathy. BONES: Unremarkable ADDITIONAL FINDINGS: IMPRESSION: No evidence of thoracic or abdominal aortic aneurysm or dissection.
--- NOTE | 2024-09-18 21:43 | EDPHYS ---
Physician Documentation [facility] Name: Johnnie Richardson III Age: 34 yrs Sex: Male : 1990 Arrival Date: 09/18/2024 Time: 19:26 Bed 4 Private MD: ED Physician Misael Sood HPI: 09/18 19:57 This 34 yrs old Black Male presents to ER via Wheelchair with complaints of Chest Pain. rn 19:57 The patient or guardian reports chest pain that is located primarily in the substernal rn area, epigastric area. The pain does not radiate. Associated signs and symptoms: Pertinent positives: abdominal pain, Pertinent negatives: diaphoresis, shortness of breath, syncope, vomiting. The chest pain is described as aching, sharp. Duration: The patient or guardian reports multiple episodes, that are intermittent. Modifying factors: The symptoms are alleviated by nothing. the symptoms are aggravated by nothing. Severity of pain: At its worst the pain was moderate in the emergency department the pain has improved. The patient has experienced a previous episode. Patient reports epigastric abdominal pain and chest pain that began today shortly after eating. Patient seen a week or 2 ago, flown to [place] for possible STEMI on ECG, was cocaine positive, told there was no blockage did not require stent or revascularization. Told was secondary to hypertension. Patient states this feels different anyway. Having more abdominal pain that radiates into the chest. No vomiting or diarrhea. No shortness of breath. No fever. No trauma.. Historical: - Allergies: 19:51 Morphine; vc1 19:51 PENICILLINS; vc1 - Home Meds: 19:51 lisinopril 20 mg Oral tab 1 tab once daily [Active]; vc1 - PMHx: 19:51 Hypertension; vc1 - PSHx: 19:51 None; vc1 - Immunization history:: Adult Immunizations up to date. - Infectious Disease History:: Denies. - Social history:: Smoking status: Patient reports the use of cigarette tobacco products, 3-4 cigs/day. - Family history:: not pertinent. - Hospitalizations: : Patient was recently seen at. ROS: 19:57 Constitutional: Negative for fever, chills, and weight loss, Neck: Negative for injury, rn pain, and swelling, Cardiovascular: Positive for chest pain Respiratory: Negative for shortness of breath, cough, wheezing, and pleuritic chest pain, Abdomen/GI: Positive for epigastric abdominal pain Back: Negative for injury and pain, MS/Extremity: Negative for injury and deformity, Skin: Negative for injury, rash, and discoloration, Neuro: Negative for headache, weakness, numbness, tingling, and seizure, Exam: 19:57 Constitutional: This is a well developed, well nourished patient who is awake, alert, rn and in no acute distress. Cardiovascular: Regular rate and rhythm. No pulse deficits. Respiratory: No increased work of breathing, no retractions or nasal flaring. Abdomen/GI: Soft, non-tender MS/ Extremity: Pulses equal, no cyanosis. Neurovascular intact. Full, normal range of motion. Equal circumference. Neuro: Awake and alert, GCS 15 22:01 ECG was reviewed by the Attending Physician. rn Vital Signs: 19:36 BP 153 / 96; Pulse 68; Resp 24; Temp 98.4; Pulse Ox 100% ; Weight 97.52 kg; Height 5 vc1 ft. 9 in. ; Pain 0/10; 20:47 BP 143 / 82; Pulse 66; Pulse Ox 97% on R/A; MAP 99 mmHg; tm6 21:07 BP 143 / 82; Pulse 64; Resp 17; Temp 98.4; Pulse Ox 97% ; Pain 0/10; bm8 21:59 BP 125 / 75; Pulse 68; Resp 17; Temp 98.1; Pulse Ox 96% ; Pain 0/10; bm8 19:36 Body Mass Index 31.75 (97.52 kg, 175.26 cm) vc1 19:36 Pain Scale: Adult vc1 21:07 Pain Scale: Adult bm8 21:59 Pain Scale: Adult bm8 [place] Coma Score: 20:07 Eye Response: spontaneous(4). Motor Response: obeys commands(6). Verbal Response: bm8 oriented(5). Total: 15. 20:07 Eye Response: spontaneous(4). Motor Response: obeys commands(6). Verbal Response: bm8 oriented(5). Total: 15. 21:07 Eye Response: spontaneous(4). Motor Response: obeys commands(6). Verbal Response: bm8 oriented(5). Total: 15. 21:59 Eye Response: spontaneous(4). Motor Response: obeys commands(6). Verbal Response: bm8 oriented(5). Total: 15. MDM: 19:29 Medical Screening Exam initiated rn 20:18 ED course: ECG shows ST elevation, no gross changes compared to last ECG when patient rn was flown out and proven to be not be blockage or require stent. Consulted with Dr. Restrepo, agrees not ST elevation SC and no reason to activate cath or STEMI. Troponin negative. Pain even feels different from last time. Will wait on further workup.. 21:41 Differential diagnosis: acute myocardial infarction, acute pericarditis, anxiety, chest rn wall pain, costochondritis, esophagitis, gastritis, gastroesophageal reflux disease (GERD), pancreatitis, peptic ulcer disease, pneumothorax. Data reviewed: vital signs, nurses notes, lab test result(s), EKG, radiologic studies, CT scan, plain films, and as a result, I will discharge patient. Care significantly affected by the following chronic conditions: Hypertension. Counseling: I had a detailed discussion with the patient and/or guardian regarding the historical points, exam findings, and any diagnostic results supporting the discharge/admit diagnosis, lab results, radiology results, the need for outpatient follow up, to return to the emergency department if symptoms worsen or persist or if there are any questions or concerns that arise at home. Special discussion: Based on the patient's history, exam, and Dx evaluation, there is no indication for emergent intervention or inpatient Tx. It is understood by the patient/guardian that if the Sx's persist or worsen they need to return immediately for re-evaluation. Based on the patient's Hx, exam, and Dx evaluation, there is no indication for emergent surgery or inpatient Tx. It is understood by the patient/guardian that if the Sx's persist or worsen they need to return immediately for re-evaluation. I discussed with the patient/guardian in detail that at this point there is no indication for admission to the hospital. It is understood, however, that if the symptoms persist or worsen the patient needs to return immediately for re-evaluation. 09/18 19:30 Order name: Basic Metabolic Panel; Complete Time: 20:13 rn 09/18 19:30 Order name: CBC with Diff; Complete Time: 20:13 rn 09/18 19:30 Order name: NT PRO-BNP; Complete Time: 20:13 rn 09/18 19:30 Order name: PT-INR; Complete Time: 19:54 rn 09/18 19:30 Order name: Troponin HS; Complete Time: 20:13 rn 09/18 19:34 Order name: Lipase; Complete Time: 20:13 rn 09/18 19:34 Order name: LFT's; Complete Time: 20:13 rn 09/18 20:32 Order name: Troponin High Sensitivity; Complete Time: 21:14 rn 09/18 19:30 Order name: XRAY Chest (1 view); Complete Time: 19:54 rn 09/18 19:34 Order name: CT Aorta for Dissection; Complete Time: 20:32 rn 09/18 19:30 Order name: Cardiac monitoring; Complete Time: 19:36 rn 09/18 19:30 Order name: EKG - Nurse/Tech; Complete Time: 19:36 rn 09/18 19:30 Order name: IV Saline Lock; Complete Time: 19:36 rn 09/18 19:30 Order name: Labs collected and sent; Complete Time: 19:36 rn 09/18 19:30 Order name: O2 Per Protocol; Complete Time: 19:36 rn 09/18 19:30 Order name: O2 Sat Monitoring; Complete Time: 19:36 rn EC:01 Rate is 73 beats/min. Rhythm is regular. QRS [place] is Normal. MA interval is normal. QRS rn interval is normal. QT interval is normal. No Q waves. T waves are Normal. No ST changes noted. Clinical impression: NSR w/ Non-specific ST/T Changes and No change from prior ECG. Interpreted by me. Reviewed by me. Administered Medications: 19:47 Drug: Famotidine IVP 20 mg IVP once; dilute with 10 mL 0.9% NaCl; give over 2 minutes tm6 Route: IVP; Site: left antecubital; 20:43 Follow up: Response: No adverse reaction tm6 19:47 Drug: morphine IVP or IV 4 mg IVP once over 4 mins Route: IVP; Infused Over: 4 mins; tm6 Site: left antecubital; 20:43 Follow up: Response: No adverse reaction tm6 Disposition Summary: 09/18/24 21:42 Discharge Ordered Notes: Location: Home rn Problem: new rn Symptoms: have improved rn Condition: Stable rn Diagnosis - Chest pain, unspecified rn - Upper abdominal pain, unspecified rn Followup: rn - With: Private Physician - When: As needed - Reason: Recheck today's complaints, Re-evaluation by your physician Discharge Instructions: - Discharge Summary Sheet rn - Abdominal Pain, Adult rn - Nonspecific Chest Pain, Adult rn - Pain Without a Known Cause rn Forms: - Medication Reconciliation Form rn - Antibiotic rn dialysis - Prescription Opioid Use rn - Patient Portal Instructions rn - Leadership Thank You Letter rn Prescriptions: - Protonix 40 mg Oral Tablet - take 1 tablet ORAL route once daily; 30 tablet; Refills: 0, Product Selection rn Permitted Signatures: Dispatcher [employer] EDMS Misael Sood MD MD rn Calcote, Vanessa, RN RN vc1 Eden Amos RN RN tm6 Corrections: (The following items were deleted from the chart) 19:30 19:30 BASIC METABOLIC PANEL+C.LAB.BRZ ordered. EDMS EDMS 19:30 19:30 CBC+H.LAB.BRZ ordered. EDMS EDMS 19:30 19:30 PROBNP+C.LAB.BRZ ordered. EDMS EDMS 19:30 19:30 PROTIME (+INR)+COAG.LAB.BRZ ordered. EDMS EDMS 19:30 19:30 Troponin High Sensitivity+C.LAB.BRZ ordered. EDMS EDMS 19:30 19:30 Chest Single View+RAD.RAD.BRZ ordered. EDMS EDMS 19:35 19:35 Angio Aorta For Dissection+CT.RAD.BRZ ordered. EDMS EDMS 19:35 19:35 LIPASE+C.LAB.BRZ ordered. EDMS EDMS 19:35 19:35 HEPATIC FUNCTION+C.LAB.BRZ ordered. EDMS EDMS
--- NOTE | 2024-09-18 21:43 | ER ---
Nurse's Notes [facility] Name: Johnnie Richardson III Age: 34 yrs Sex: Male : 1990 Arrival Date: 09/18/2024 Time: 19:26 Bed 4 Private MD: Diagnosis: Chest pain, unspecified;Upper abdominal pain, unspecified Presentation: 09/18 19:36 Chief complaint: Patient states: Started having chest pain about an hour and half ago vc1 after eating. Coronavirus screen: Client denies travel out of the [place] in the last 14 days. At this time, the client does not indicate any symptoms associated with coronavirus-19. Ebola Screen: Patient negative for fever greater than or equal to 101.5 degrees Fahrenheit, and additional compatible Ebola Virus Disease symptoms Patient denies exposure to infectious person. Patient denies travel to an Ebola-affected area in the 21 days before illness onset. No symptoms or risks identified at this time. Initial Sepsis Screen: Does the patient meet any 2 criteria? No. Patient's initial sepsis screen is negative. Does the patient have a suspected source of infection? No. Patient's initial sepsis screen is negative. Risk Assessment: Do you want to hurt yourself or someone else? Patient reports no desire to harm self or others. Onset of symptoms was September 18, 2024 at 17:00. Care prior to arrival: None. Activity prior to arrival: None. Mechanism of Injury: No Mechanism of Injury. 19:36 Method Of Arrival: Wheelchair vc1 19:36 Acuity: SHILO 3 vc1 Historical: - Allergies: 19:51 Morphine; vc1 19:51 PENICILLINS; vc1 - Home Meds: 19:51 lisinopril 20 mg Oral tab 1 tab once daily [Active]; vc1 - PMHx: 19:51 Hypertension; vc1 - PSHx: 19:51 None; vc1 - Immunization history:: Adult Immunizations up to date. - Infectious Disease History:: Denies. - Social history:: Smoking status: Patient reports the use of cigarette tobacco products, 3-4 cigs/day. - Family history:: not pertinent. - Hospitalizations: : Patient was recently seen at. Screenin:47 [facility] ED Fall Risk Assessment (Adult) History of falling in the last 3 months, tm6 including since admission No falls in past 3 months (0 pts) Confusion or Disorientation No (0 pts) Intoxicated or Sedated No (0 pts) Impaired Gait No (0 pts) Mobility Assist Device Used No (0 pt) Altered Elimination No (0 pt) Score/Fall Risk Level 0 - 2 = Low Risk Oriented to surroundings, Maintained a safe environment, Educated pt \T\ family on fall prevention, incl call for assistance when getting out of bed. Abuse screen: Denies threats or abuse. Denies injuries from another. Nutritional screening: No deficits noted. Tuberculosis screening: No symptoms or risk factors identified. Assessment: 20:07 Reassessment: Patient appears in no apparent distress at this time. Patient and/or bm8 family updated on plan of care and expected duration. Pain level reassessed. Patient is alert, oriented x 3, equal unlabored respirations, skin warm/dry/pink. General: Appears in no apparent distress. comfortable, Behavior is calm, cooperative, appropriate for age. Pain: Complains of pain in chest and abdomen Pain does not radiate. Pain currently is 0 out of 10 on a pain scale. Pain began gradually. Neuro: No deficits noted. Level of Consciousness is awake, alert, obeys commands, Oriented to person, place, time, situation, Appropriate for age. Cardiovascular: Reports chest pain, earlier that comes and goes, thinks it might be from eating fried chicken Heart tones S1 S2 present Capillary refill < 3 seconds in bilateral fingers. Respiratory: Airway is patent Respiratory effort is even, unlabored, Respiratory pattern is regular, symmetrical, Breath sounds are clear bilaterally. GI: Abdomen is flat, non-distended, Bowel sounds present X 4 quads. Abdomen is tender to palpation in epigastric area and right upper quadrant Reports upper abdominal pain, epigastric pain, nausea, Pain is 0 out of 10 on a pain scale. : No signs and/or symptoms were reported regarding the genitourinary system. EENT: No signs and/or symptoms were reported regarding the EENT system. Derm: No signs and/or symptoms reported regarding the dermatologic system. Musculoskeletal: No signs and/or symptoms reported regarding the musculoskeletal system. 20:47 Reassessment: Patient and/or family updated on plan of care and expected duration. Pain tm6 level reassessed. Patient is alert, oriented x 3, equal unlabored respirations, skin warm/dry/pink. 21:59 Reassessment: Patient appears in no apparent distress at this time. Patient and/or bm8 family updated on plan of care and expected duration. Pain level reassessed. Patient is alert, oriented x 3, equal unlabored respirations, skin warm/dry/pink. Patient denies pain at this time. Patient states feeling better. Patient states symptoms have improved. Vital Signs: 19:36 BP 153 / 96; Pulse 68; Resp 24; Temp 98.4; Pulse Ox 100% ; Weight 97.52 kg; Height 5 vc1 ft. 9 in. ; Pain 0/10; 20:47 BP 143 / 82; Pulse 66; Pulse Ox 97% on R/A; MAP 99 mmHg; tm6 21:07 BP 143 / 82; Pulse 64; Resp 17; Temp 98.4; Pulse Ox 97% ; Pain 0/10; bm8 21:59 BP 125 / 75; Pulse 68; Resp 17; Temp 98.1; Pulse Ox 96% ; Pain 0/10; bm8 19:36 Body Mass Index 31.75 (97.52 kg, 175.26 cm) vc1 19:36 Pain Scale: Adult vc1 21:07 Pain Scale: Adult bm8 21:59 Pain Scale: Adult bm8 [place] Coma Score: 20:07 Eye Response: spontaneous(4). Motor Response: obeys commands(6). Verbal Response: bm8 oriented(5). Total: 15. 20:07 Eye Response: spontaneous(4). Motor Response: obeys commands(6). Verbal Response: bm8 oriented(5). Total: 15. 21:07 Eye Response: spontaneous(4). Motor Response: obeys commands(6). Verbal Response: bm8 oriented(5). Total: 15. 21:59 Eye Response: spontaneous(4). Motor Response: obeys commands(6). Verbal Response: bm8 oriented(5). Total: 15. ED Course: 19:28 Patient arrived in ED. ra3 19:29 Misael Sood MD is Attending Physician. rn 19:39 Triage completed. vc1 19:45 XRAY Chest (1 view) In Process Unspecified. EDMS 19:47 Patient has correct armband on for positive identification. Placed in gown. Bed in low tm6 position. Call light in reach. Side rails up X 1. Provided Education on: use of call weir. Client placed on continuous cardiac and pulse oximetry monitoring. NIBP monitoring applied. playground monitor on. Pulse ox on. NIBP on. Door closed. Noise minimized. 19:47 Inserted saline lock: 20 gauge in left antecubital area, using aseptic technique. Blood tm6 collected. Flushed with 10 mL NS. Patient maintains SpO2 saturation greater than 95% on room air. 20:07 Jomar Perez, RN is Primary Nurse. bm8 20:07 No provider procedures requiring assistance completed. Initial lab(s) drawn, by mt, bm8 sent to lab. EKG done, by ED staff, reviewed by Misael Sood MD. 20:19 CT Aorta for Dissection In Process Unspecified. EDMS 20:43 Troponin High Sensitivity Sent. tm6 21:59 IV discontinued, intact, bleeding controlled, No redness/swelling at site. Pressure bm8 dressing applied. 22:00 Arm band placed on right wrist. bm8 Administered Medications: 19:47 Drug: Famotidine IVP 20 mg IVP once; dilute with 10 mL 0.9% NaCl; give over 2 minutes tm6 Route: IVP; Site: left antecubital; 20:43 Follow up: Response: No adverse reaction tm6 19:47 Drug: morphine IVP or IV 4 mg IVP once over 4 mins Route: IVP; Infused Over: 4 mins; tm6 Site: left antecubital; 20:43 Follow up: Response: No adverse reaction tm6 Medication: 20:07 VIS not applicable for this client. bm8 Outcome: 21:42 Discharge ordered by . rn 21:59 Discharged to home ambulatory, bm8 21:59 Condition: stable 21:59 Discharge instructions given to patient, family, Instructed on discharge instructions, follow up and referral plans. medication usage, safety practices, Demonstrated understanding of instructions, follow-up care, medications, Prescriptions given X 1, 22:00 Patient left the ED. bm8 Signatures: Dispatcher [employer] EDMS Misael Sood MD MD rn Calcote, Vanessa, RN RN vc1 Eden Amos RN RN tm6 Veronica Magdaleno ra3 Jomar Perez, RN RN bm8
[2024-09-19 04:21] VITALS: BP 125/75; TEMP 98.1; O2SAT 96
--- NOTE | 2024-09-19 12:36 | EKG ---
Test Date: 2024-09-18 Test Time: 19:34:29 Can Filler: PRICE MEASUREMENT RESULTS: Intervals: Rate: 73 UT: 134 QRSD: 110 QT: 368 QTc: 405 [place]: P: 63 UT: 134 QRS: 19 T: -33 INTERPRETIVE STATEMENTS: Normal sinus rhythm Possible Left atrial enlargement Incomplete right bundle branch block Abnormal ECG Compared to ECG 09/08/2024 23:09:24 Incomplete right bundle-branch block now present Sinus bradycardia no longer present ST (T wave) deviation still present Myocardial infarct finding still present Electronically Signed On 09-19-24 12:35:40 CDT by Yannick Restrepo
--- NOTE | 2024-09-21 14:59 | EKG ---
Test Date: 2024-09-18 Test Time: 19:41:57 Sales Representative [employer]: PRICE MEASUREMENT RESULTS: Intervals: Rate: 88 W[place]: 132 QRSD: 110 QT: 362 QTc: 438 [place]: P: 67 W[place]: 132 QRS: 3 T: -30 INTERPRETIVE STATEMENTS: Normal sinus rhythm Possible Left atrial enlargement Incomplete right bundle branch block Left ventricular hypertrophy ST elevation, consider anterior injury or acute infarct ACUTE OH / STEMI Abnormal ECG Compared to ECG 09/18/2024 19:34:29 Left ventricular hypertrophy now present ST (T wave) deviation now present Myocardial infarct finding now present Electronically Signed On 09-21-24 14:48:52 CDT by Luis Carlos Pelletier
== END 2024-09-18 22:00 | disposition home or self-care (01) ==
LOC: ER 19:26
DX: R07.9 Chest pain, unspecified (principal); R10.9 Unspecified abdominal pain; I10 Essential (primary) hypertension; F17.210 Nicotine dependence, cigarettes, uncomplicated; Z79.899 Other long term (current) drug therapy; Z88.0 Allergy status to penicillin; Z88.5 Allergy status to narcotic agent
CPT/HCPCS: 36415; 71045; 71275; 74175; 80048; 80076; 83690; 83880; 84484; 85025; 85610; 93005; 96374; 96375; 99285; J2405; Q9967

== ENCOUNTER 2024-12-02 00:29 | Emergency (ER) | payer SELFPAY, OTHER ==
[2024-12-02] MEDS ORDERED: ONDANSETRON 4 MG/2 ML VIAL ONE (00:50)
[2024-12-02] MEDS ORDERED: MORPHINE 4 MG/ML SYR ONE (00:51)
[2024-12-02] MEDS ORDERED: CEFAZOLIN SODIUM 1 GM/VIAL ONE (00:51)
[2024-12-02] MEDS ORDERED: KETOROLAC 30 MG/ML INJ ONE (00:51)
[2024-12-02] MEDS ORDERED: NA CHLORIDE 0.9% 50 ML ONE (00:52)
[2024-12-02 01:07] LABS: Absolute Eosinophils 0.1 K/uL (0-0.5); Absolute Lymphocytes (CBC) 1.1 K/uL (0.7-4.9); Absolute Monocytes 0.6 K/uL (0.1-1.3); Absolute Neutrophil 8.2 K/uL (1.8-8.0); Basophils % 0.4 % (0-1.3); Hematocrit 48.9 % (39.6-49.0); Hemoglobin 16.4 g/dL (13.6-17.9); Lymphocytes % 10.5 % (15.3-44.8); MCH 31.5 pg (27.0-35.0); MCHC 33.6 g/dL (32.0-36.0); MCV 93.7 fL (80-100); MPV 7.7 fL (7.6-11.3); Monocytes % 6.1 % (3.3-12.3); Platelets 323 thou/uL (152-406); RBC Red Blood Cell Count 5.22 M/uL (4.33-5.43); Red Cell Distribution Width 13.8 % (12.1-15.2)
[2024-12-02] MEDS ORDERED: LIDOCAINE 1% 20 ML MDV ONE ×2 (01:10→03:25)
[2024-12-02] MEDS ORDERED: methocarbamoL 750 MG TAB ONE (01:11)
[2024-12-02] MEDS ORDERED: NA CHLORIDE 0.9% 1,000 ML ONE (01:11)
[2024-12-02 01:23] LABS: Anion Gap 9.4 mEq/L (5.0-15.0); Bilirubin Total 0.7 mg/dL (0.2-1.0); Globulin 3.9 g/dL (2.3-3.5); Potassium 4.4 mEq/L (3.5-5.1); Protein, Total 7.9 g/dL (6.4-8.2)
[2024-12-02] MEDS ORDERED: HYDROCODONE/APAP 10/325 TAB ONE (02:56)
--- NOTE | 2024-12-02 03:04 | RAD REPORT ---
EXAM: CT Head and Cervical Spine Without Intravenous Contrast CLINICAL HISTORY: head injury TECHNIQUE: Axial computed tomography images of the head/brain and cervical spine without intravenous contrast. Sagittal and coronal reformatted images were created and reviewed. This CT exam was performed using one or more of the following dose reduction techniques: automated exposure control, adjustmen t of the mA and/or kV according to patient size, and/or use of iterative reconstruction technique. COMPARISON: No relevant prior studies available. FINDINGS: Brain: Unremarkable. No hemorrhage. No significant white matter disease. No edema. Ventricles: Unremarkable. No ventriculomegaly. Skull: Minimally displaced and angulated bilateral nasal bone fractures. Sinuses: Mild left and minimal right ethmoid and minimal left frontal sinus mucosal thickening. Mastoid air cells: Unremarkable as visualized. No mastoid effusion. Vertebrae: Unremarkable. No acute fracture. Normal alignment. Discs/spinal canal/neural foramina: No acute findings. No spinal canal stenosis. Soft tissues: Perinasal soft tissue swelling with a laceration near the nasal bridge. IMPRESSION: 1. No acute intracranial or extra-axial abnormality. 2. No acute cervical spine injury. 3. Bilateral nasal bone fractures. Electronically signed by: Aster Wiley MD 12/02/2024 02:57 AM [facility] Due to temporary technical issues with the PACS/[employer] reporting system, reports are being des d by the in-house radiologist without review as a courtesy to ensure prompt reporting the interpreting radiologist is fully responsible for the content of the report. Transcribed Date/Time: 12/02/2024 3:04 AM
--- NOTE | 2024-12-02 03:04 | RAD REPORT ---
EXAM: CT Maxillofacial Without Intravenous Contrast CLINICAL HISTORY: facial injury TECHNIQUE: Axial computed tomography images of the face without intravenous contrast. Sagittal and coronal ref ormatted images were created and reviewed. This CT exam was performed using one or more of the following dose reduction techniques: automated exposure control, adjustment of the mA and/or kV acc ording to patient size, and/or use of iterative reconstruction technique. COMPARISON: No relevant prior studies available. FINDINGS: Bones/joints: Minimally displaced bilateral/angulated nasal bone fractures. Soft tissues: Perinasal soft tissue swelling with a laceration near the nasal bridge. Orbits: Unremarkable. Sinuses: Mild to moderate left and mild right ethmoid and minimal left frontal, bilateral maxillary and sphenoid sinus mucosal thickening. No air-fluid levels. IMPRESSION: Bilateral nasal bone fractures. Electronically signed by: Aster Wiley MD 12/02/2024 02:53 AM [facility] Due to temporary technical issues with the PACS/[employer] reporting system, reports are being des d by the in-house radiologist without review as a courtesy to ensure prompt reporting the interpreting radiologist is fully responsible for the content of the report. Transcribed Date/Time: 12/02/2024 3:04 AM
--- NOTE | 2024-12-02 03:05 | RAD REPORT ---
PROCEDURE: CT Neck With Intravenous Contrast CLINICAL INDICATION: The patient is 34 years old and is Male; neck injury Bed Name: 14 TECHNIQUE: Axial computed tomography images of the neck with intravenous contrast. Sagittal and coronal reform atted images were created and reviewed. This CT exam was performed using one or more of the following dose reduction techniques: automated exposure control, adjustment of the mA and/or kV acc ording to patient size, and/or use of iterative reconstruction technique. COMPARISON: No relevant prior studies available. FINDINGS: OROPHARYNX: Unremarkable No significant tonsillar enlargement. No peritonsillar abscess. HYPOPHARYNX: Unremarkable LARYNX: Unremarkable Normal epiglottis. TRACHEA: Unremarkable RETROPHARYNGEAL SPACE: Unremarkable SUBMANDIBULAR/PAROTID GLANDS: Unremarkable Glands are normal in size. THYROID: Unremarkable No enlarged or calcified nodules. BONES/JOINTS: Suspected nondisplaced, nondepressed fracture of the left nasal bone with slight asym metry of overlying soft tissues. Congenital narrowing of the cervical spine diffusely, as narrow as 0.85 cm in AP diameter at the C3-4 level. Craniocervical orientation is normal. No acute fracture or acute vertebral body height loss. No significant subluxation. No dislocation. No significant bony spinal canal stenosis. SOFT TISSUES: Unremarkable No abnormal prevertebral soft tissue swelling. VASCULATURE: No acute findings. LYMPH NODES: Unremarkable No lymphadenopathy. LUNG APICES: Unremarkable as visualized. OTHER FINDINGS: Dens is intact. IMPRESSION: 1. Suspected nondisplaced, nondepressed fracture of the left nasal bone with slight asymmetry of ov erlying soft tissues. Correlation with point tenderness recommended. 2. No acute abnormality of the bones or soft tissues of the neck. 3. Congenital narrowing of the cervical spine diffusely, as narrow as 0.85 cm in AP diameter at the C3-4 level. Electronically signed by: Kleber Ha MD 12/02/2024 03:00 AM [facility] Due to temporary technical issues with the PACS/[employer] reporting system, reports are being des d by the in-house radiologist without review as a courtesy to ensure prompt reporting the interpreting radiologist is fully responsible for the content of the report. Transcribed Date/Time: 12/02/2024 3:04 AM
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
[2024-12-02 05:08] VITALS: O2SAT 100
[2024-12-02 05:15] VITALS: BP 138/82; TEMP 98
== END 2024-12-02 04:48 | disposition home or self-care (01) ==
LOC: ER 00:29
DX: S01.511A Laceration without foreign body of lip, initial encounter (principal); S01.512A Laceration without foreign body of oral cavity, initial encounter; S01.21XA Laceration without foreign body of nose, initial encounter; S03.2XXA Dislocation of tooth, initial encounter
CPT/HCPCS: 12011; 12052; 36415; 70450; 70486; 70491; 72125; 76377; 80053; 85025; 96361; 96365; 96375; 99285; J0690; J2003; J2405; J7030; Q9967

== ENCOUNTER 2025-01-10 14:43 | Emergency (ER) | payer SELFPAY, OTHER ==
--- NOTE | 2025-01-10 15:10 | ER ---
Nurse's Notes [facility] Name: Johnnie Richardson III Age: 34 yrs Sex: Male : 1990 Arrival Date: 01/10/2025 Time: 14:43 Bed Treatment Private MD: Diagnosis: Encounter for removal of sutures Presentation: 01/10 14:56 Chief complaint: Patient states: Suture removal to forehead and nose. Coronavirus ld1 screen: At this time, the client does not indicate any symptoms associated with coronavirus-19. Ebola Screen: No symptoms or risks identified at this time. Initial Sepsis Screen: Does the patient meet any 2 criteria? No. Patient's initial sepsis screen is negative. Does the patient have a suspected source of infection? No. Patient's initial sepsis screen is negative. Risk Assessment: Do you want to hurt yourself or someone else? Patient reports no desire to harm self or others. Onset of symptoms was January 10, 2025. 14:56 Method Of Arrival: Ambulatory ld1 14:56 Acuity: SHILO 5 ld1 Triage Assessment: 14:56 General: Appears in no apparent distress. comfortable, Behavior is calm, cooperative, ld1 appropriate for age. Pain: Denies pain. Neuro: Level of Consciousness is awake, alert, obeys commands, Oriented to person, place, time, situation. Cardiovascular: Capillary refill < 3 seconds Patient's skin is warm and dry. Respiratory: Airway is patent Respiratory effort is even, unlabored. GI: Abdomen is flat, non-distended. Historical: - Allergies: 14:56 Morphine; ld1 14:56 PENICILLINS; ld1 14:56 Sulfa (Sulfonamide Antibiotics); ld1 - PMHx: 14:56 Hypertension; Myocardial infarction; ld1 - PSHx: 14:56 heart cath; ld1 - Immunization history:: Adult Immunizations up to date. - Infectious Disease History:: Denies. - Social history:: Smoking status: Patient denies any tobacco usage or history of. Screenin:57 [facility] ED Fall Risk Assessment (Adult) History of falling in the last 3 months, ld1 including since admission No falls in past 3 months (0 pts) Confusion or Disorientation No (0 pts) Intoxicated or Sedated No (0 pts) Impaired Gait No (0 pts) Mobility Assist Device Used No (0 pt) Altered Elimination No (0 pt) Score/Fall Risk Level 0 - 2 = Low Risk Oriented to surroundings, Hourly rounding (assess needs \T\ fall precautionary measures) done. Abuse screen: Denies threats or abuse. Denies injuries from another. Nutritional screening: No deficits noted. Tuberculosis screening: No symptoms or risk factors identified. Assessment: 14:57 Reassessment: Patient appears in no apparent distress at this time. No changes from ld1 previously documented assessment. Patient and/or family updated on plan of care and expected duration. Pain level reassessed. Patient is alert/active/playful, equal unlabored respirations, skin warm/dry/pink. ED Course: 14:46 Patient arrived in ED. im 14:51 Madelyn [facility]anegra [facility]C [facility]. kb 14:51 Misael Sood MD is Attending Physician. kb 14:56 Triage completed. ld1 14:56 Arm band placed on right wrist. ld1 14:57 Patient has correct armband on for positive identification. Bed in low position. Call ld1 light in reach. Side rails up X2. NIBP on. Door closed. Noise minimized. Warm blanket given. 14:57 No provider procedures requiring assistance completed. Patient did not have IV access ld1 during this emergency room visit. 15:43 Ct Platt, RN is Primary Nurse. iw Administered Medications: No medications were administered Medication: 14:57 VIS not applicable for this client. ld1 Outcome: 15:09 Discharge ordered by . kb 15:45 Patient left the ED. iw Signatures: Madelyn Bocanegra FNP-C FNP-Ct Slater, RN DAVID iw Candice Jones RN RN ld1 Renae Pike im
--- NOTE | 2025-01-10 15:10 | EDPHYS ---
Physician Documentation [facility] Name: Johnnie Richardson III Age: 34 yrs Sex: Male : 1990 Arrival Date: 01/10/2025 Time: 14:43 Bed Treatment Private MD: ED Physician Misael Sood HPI: 01/10 15:07 This 34 yrs old Black Male presents to ER via Ambulatory with complaints of Suture kb Removal. 15:07 Pt is a 34 year old male who presents for suture removal. States he had sutures placed kb on 12/01/23 and most of them fell out on their own, but he still has some left. States he didn't have transportation up here until today. . Historical: - Allergies: 14:56 Morphine; ld1 14:56 PENICILLINS; ld1 14:56 Sulfa (Sulfonamide Antibiotics); ld1 - PMHx: 14:56 Hypertension; Myocardial infarction; ld1 - PSHx: 14:56 heart cath; ld1 - Immunization history:: Adult Immunizations up to date. - Infectious Disease History:: Denies. - Social history:: Smoking status: Patient denies any tobacco usage or history of. ROS: 15:06 Constitutional: As per HPI kb Exam: 15:06 Constitutional: This is a well developed, well nourished patient who is awake, alert, kb and in no acute distress. Head/Face: Normocephalic, atraumatic. ENT: Moist Mucous membranes Cardiovascular: Regular rate Respiratory: Respirations even and unlabored. No increased work of breathing. Talking in full sentences MS/ Extremity: Pulses equal, no cyanosis. Neurovascular intact. Full, normal range of motion. Neuro: Awake and alert, GCS 15, oriented to person, place, time, and situation. 15:06 Skin: Wound recheck: Suture laceration closure: the wound is healing well, the edges are well approximated, no evidence of dehiscence, no drainage, no erythema, no swelling, Procedures: 15:06 Suture/Staple removal: Removed 3 sutures, from bridge of nose, site appears well kb healed, Patient tolerated well. 15:06 Suture/Staple removal: Removed 3 sutures, from above upper lip, site appears well kb healed, Patient tolerated well. MDM: 14:51 Medical Screening Exam initiated kb 15:07 Data reviewed: vital signs, nurses notes. kb 15:07 Counseling: I had a detailed discussion with the patient and/or guardian regarding the kb historical points, exam findings, and any diagnostic results supporting the discharge/admit diagnosis, the need for outpatient follow up, a family practitioner, to return to the emergency department if symptoms worsen or persist or if there are any questions or concerns that arise at home. 15:08 Care significantly affected by the following Social Determinants of Health: Poor access kb to transportation. Administered Medications: No medications were administered Disposition: 15:53 Co-signature as Attending Physician, Misael Sood MD I reviewed the patient's care rn provided by the Advanced Practice Provider and agree with the diagnosis and treatment plan. Disposition Summary: 01/10/25 15:09 Discharge Ordered Notes: Location: Home kb Condition: Stable kb Diagnosis - Encounter for removal of sutures kb Followup: kb - With: Emergency Department - When: As needed - Reason: Worsening of condition Followup: kb - With: Private Physician - When: 2 - 3 days - Reason: Recheck today's complaints, Continuance of care, Re-evaluation by your physician Discharge Instructions: - Discharge Summary Sheet kb - Suture Removal, Care After kb Forms: - Medication Reconciliation Form kb - Antibiotic Education kb - Prescription Opioid Use kb - Patient Portal Instructions kb - Leadership Thank You Letter kb Signatures: Madelyn Bocanegra, REILLY-C DIRECTOR OF SALES-CkMisael Maldonado MD MD rn Sims, Lauren, RN RN ld1
== END 2025-01-10 15:45 | disposition home or self-care (01) ==
LOC: ER 14:43
DX: Z48.02 Encounter for removal of sutures (principal)
CPT/HCPCS: 99281